=== PATIENT | male | born 1960 | race Caucasian/White ===

== ENCOUNTER → 2021-10-26 | Outpatient (CLI) | payer BC ==
[~2021-10-26] MED LIST: ACYC200C24 PO; ASPI-1197 PO; ATOR40TA69 PO; DICL50TA9 PO; DULO60CA45 PO; GLUC-148 PO; IBUP-2784 PO; IOHEXOL-350 50ML VIAL IV ONE; LIDOCAINE HCL 1% 20 ML VIAL ONE; LISI20TA24 PO; LORA10TA7 PO; METF-444 PO; NADO80TA2 PO; OMEP20TA25 PO; PARO40TA72 PO; PIOG30TA70 PO; TAMS0.4C32 PO; iron PO; multivitamin PO
== END | disposition home or self-care (01) ==
LOC: RAH 08:01
PROVIDERS: ATTEND Family Medicine
DX: J44.9 Chronic obstructive pulmonary disease, unspecified (principal); J33.8 Other polyp of sinus; I25.10 Atherosclerotic heart disease of native coronary artery without angina pectoris; I70.8 Atherosclerosis of other arteries; K57.90 Diverticulosis of intestine, part unspecified, without perforation or abscess without bleeding; M47.815 Spondylosis without myelopathy or radiculopathy, thoracolumbar region; N28.1 Cyst of kidney, acquired; R16.0 Hepatomegaly, not elsewhere classified; R91.8 Other nonspecific abnormal finding of lung field; R59.1 Generalized enlarged lymph nodes
CPT/HCPCS: 70492; 71270; 74170; Q9967

== ENCOUNTER → 2021-10-28 | Day surgery (SDC) | payer BC ==
[~2021-10-28] MED LIST changes: -IOHEXOL-350 50ML VIAL IV ONE; -LIDOCAINE HCL 1% 20 ML VIAL ONE; +OMEP20TA20 PO; -OMEP20TA25 PO
[2021-10-28 09:24] LABS: INR 1.11 (0.85-1.15)
[2021-10-28 09:26] LABS: PARTIAL THROMBOPLASTIN TIME 23.7 SEC (26.3-35.5)
== END | disposition home or self-care (01) ==
LOC: EDSTATUS 10-27 08:00 → DAH 07:31
PROVIDERS: ATTEND Otolaryngology
DX: R59.0 Localized enlarged lymph nodes (principal); Z79.01 Long term (current) use of anticoagulants
CPT/HCPCS: 36415; 38505; 76942; 85610; 85730; 87070; A4215